=== PATIENT | male | born 1945 | race Caucasian/White ===

== ENCOUNTER 2018-09-12 15:34 | Outpatient (CLI) | payer OTHER | END 2018-09-12 15:43 | disposition home or self-care (01) | LOC: LAB 15:34 | DX: R97.20 Elevated prostate specific antigen [PSA] (principal) ==

== ENCOUNTER 2018-10-02 07:08 | Outpatient (CLI) | payer OTHER | END 2018-10-02 08:51 | disposition home or self-care (01) | LOC: SONOGRAMA 07:08 | DX: C61 Malignant neoplasm of prostate (principal); R97.20 Elevated prostate specific antigen [PSA] ==

== ENCOUNTER 2019-03-03 09:00 | Inpatient (IN) | payer OTHER ==
[~2019-03-03] VITALS: Ht 162.6 cm; Wt 78.0 kg
[2019-03-03] MEDS ORDERED: PROGRAF1 MG PO (10:06)
[2019-03-03] MEDS ORDERED: CELLCEPT250 MG PO (10:06)
[2019-03-03] MEDS ORDERED: AMLODIPINE BESYL5 MG PO (10:07)
[2019-03-03] MEDS ORDERED: PREDNISONE PO (10:07)
[2019-03-03] MEDS ORDERED: TOPROL XL25 M1 PO (10:08)
[2019-03-03] MEDS ORDERED: LISINOPRIL10 MG PO (10:08)
[2019-03-03] MEDS ORDERED: CLOPIDOGREL BIS75 MG PO (10:08)
[2019-03-03] MEDS ORDERED: CRESTOR10 MG PO (10:09)
[2019-03-03] MEDS ORDERED: SEPTRA PO (10:09)
[2019-03-03] MEDS ORDERED: LANTUS (10:10)
[2019-03-03] MEDS ORDERED: HUM (10:11)
[2019-03-10] MEDS ORDERED: PREDNISONE5 M1 PO (08:01)
[2019-03-10] MEDS ORDERED: BACTRIM 400-801 EACH PO (08:07)
== END 2019-03-13 10:05 | disposition home or self-care (01) | DRG 708 ==
LOC: SURH 03-10 05:45 → O/R 03-10 05:45 → SURH 03-10 09:00
PROVIDERS: ADMIT Urology
PROC: 07BC0ZZ Excision of Pelvis Lymphatic, Open Approach (ICD-10-PCS; 2019-03-10)
PROC: 0VT00ZZ Resection of Prostate, Open Approach (ICD-10-PCS; principal; 2019-03-10 07:00)
DX: C61 Malignant neoplasm of prostate (principal); E11.9 Type 2 diabetes mellitus without complications; I10 Essential (primary) hypertension; R59.0 Localized enlarged lymph nodes; Z79.4 Long term (current) use of insulin; R97.21 Rising PSA following treatment for malignant neoplasm of prostate